=== PATIENT | male | born 1980 | race Two or more races ===

== ENCOUNTER 2022-01-07 16:34 | Emergency (ER) | payer OTHER ==
[~2022-01-07] VITALS: Ht 170.2 cm; Wt 85.7 kg
[2022-01-07] MEDS ORDERED: JARDIANCE10 MG PO (17:02)
== END 2022-01-07 19:35 | disposition home or self-care (01) ==
LOC: ER 16:34
DX: R10.9 Unspecified abdominal pain (principal)

== ENCOUNTER 2022-05-10 10:27 | Outpatient (CLI) | payer OTHER ==
[~2022-05-10 10:27] MED LIST: JARDIANCE10 MG PO
== END 2022-05-10 10:28 | disposition home or self-care (01) ==
LOC: NUCLEAR 10:27
PROVIDERS: ATTEND General Practice
DX: M25.461 Effusion, right knee (principal); M79.604 Pain in right leg; S89.91XA Unspecified injury of right lower leg, initial encounter

== ENCOUNTER → 2022-05-13 | Outpatient (CLI) | payer OTHER | END | disposition home or self-care (01) | LOC: MRI 09:35 | PROVIDERS: ATTEND General Practice | DX: R22.43 Localized swelling, mass and lump, lower limb, bilateral (principal); M79.604 Pain in right leg; M25.561 Pain in right knee; R60.0 Localized edema; E11.8 Type 2 diabetes mellitus with unspecified complications; E11.65 Type 2 diabetes mellitus with hyperglycemia; B35.9 Dermatophytosis, unspecified; I88.0 Nonspecific mesenteric lymphadenitis | CPT/HCPCS: 73721 ==

== ENCOUNTER 2022-06-21 02:10 | Emergency (ER) | payer OTHER ==
[~2022-06-21] VITALS: Ht 170.2 cm; Wt 88.5 kg
== END 2022-06-21 04:26 ==
LOC: ER 02:10
DX: M25.561 Pain in right knee (principal)

== ENCOUNTER 2025-01-31 16:20 | Inpatient (IN) | payer OTHER ==
[~2025-01-31] VITALS: Ht 170.2 cm; Wt 83.0 kg
--- NOTE | 2025-01-31 17:17 | NUR ---
PACIENTE ALERTA Y ORIENTADO X 3. REFIERE DESDE EL VIERNES DOLOR E INFLAMACION EN EXTREMIDADES X 4.
--- NOTE | 2025-01-31 17:19 | NUR ---
PACIENTE ALERTA Y ORIENTADO X 3. REFIERE DESDE EL VIERNES PASADO DOLOR CON INFLAMACION EN EXTREMIDADES LADO DERECHO.
[2025-01-31] MEDS ORDERED: DEXAMETHASONE SODIUM PHOSPHATE 4 MG/ML VIAL IM ONE (17:45)
[2025-01-31] MEDS ORDERED: KETOROLAC TROMETHAMINE 60 MG VIAL IM ONE (17:45)
[2025-01-31] MEDS ORDERED: ACETAMINOPHEN 500 MG GEL..CAP PO ONE (17:45)
--- NOTE | 2025-01-31 20:33 | NUR ---
PTE ALERTA,ESTABLE Y ORIENTADO.SE EDUCA SOBRE EL TRATAMIENTO QUE RECIBIRA EN EL [facility] Y [facility] REFIERE ENTENDER
[2025-01-31 20:36] LABS: BASO % 0.3 % (0.1-1.2); EOS # 0.13 (0.04-0.54); EOS % 1.0 % (0.7-7.0); LYMPH # 1.66 (1.18-3.74); LYMPH % 12.9 % (19.3-53.1); MEAN PLATELET VOLUME 10.00 fl (9.4-12.4); MONO # 1.47 (0.24-0.82); MONO % 11.4 % (4.7-12.5); NEUT # 9.51 (1.56-6.13); NEUT % 73.9 % (34.0-71.1); RED CELL DISTRIBUTION WIDTH 12.2 % (11.6-14.4); URINE APPEARANCE Clear; URINE BILIRRUBIN Negative (NEGATIVE); URINE BLOOD Negative; URINE COLOR Yellow; URINE GLUCOSE Negative (NEGATIVE); URINE KETONE Negative (NEGATIVE); URINE LEUKOCYTE Negative; URINE NITRATE Negative; URINE PROTEIN Negative (NEGATIVE); URINE UROBILINOGEN 0.2 E.U./dl
[2025-01-31 20:37] LABS: URINE BACTERIA 13.1 uL (0.0-1933); URINE EPITHELIAL CELLS 9.2 uL (0.0-38.8); URINE WBC 3.5 uL (0.0-23.2)
[2025-01-31 20:38] LABS: URINE CAST 0.73 uL (0.0-1.40); URINE RBC 1.3 uL (0.0-20.8)
[2025-01-31 20:41] LABS: ERYTHROCYTE SEDIMENTATION RATE 59 mm/hr (0-15)
[2025-01-31 21:00] LABS: INR 0.98
[2025-01-31 21:15] LABS: ALT/SGPT 15.0 U/L (12-78); AST/SGOT 7.0 U/L (15-37); BILIRUBIN TOTAL 0.4 mg/dL (0.3-1.2); BUN CREA RATIO 13.0 (7.0-25.0); CREATININE SERUM 1.09 mg/dL (0.70-1.30); GFR 73.15; GLOBULINA 4.7 G/DL (2.4-3.5); GLUCOSE FASTING 150.0 mg/dL (65-100); OSMOLALITY SERUM 281.0 MOSM/KG (275-295)
[2025-01-31] MEDS ORDERED: VANCOMYCIN HCL 1,000 MG VIAL IV ONE (22:15)
[2025-01-31] MEDS ORDERED: 0.9 % SODIUM CHLORIDE 1,000 ML IV ONE (22:15)
[2025-01-31] MEDS ORDERED: FAMOTIDINE/PF 20 MG/2 ML VIAL IV ONE (22:15)
[2025-01-31] MEDS ORDERED: CEFTRIAXONE SODIUM 1,000 MG VIAL IV ONE (22:15)
[2025-01-31] MEDS ORDERED: ACETAMINOPHEN 500 MG GEL..CAP PO PRN (22:30)
[2025-01-31] MEDS ORDERED: ENALAPRILAT DIHYDRATE 1.25 MG/ML VIAL IV PRN (22:30)
[2025-02-01] MEDS ORDERED: INSULIN REGULAR, HUMAN 1,000 UNIT/10 ML UNITS IV STA (03:18)
--- NOTE | 2025-02-01 07:54 | NUR ---
PACIENTE ALERTA Y ORIENTADO X3. EL MISMO CANALIZADO EN BRAZO DERECHO # 18 PATENTE Y LAURENT DE DOLOR BAJANDO CON UN 0.9NSS @ 100 ML/HR. EN ESPERA DE ESTUDIO DE DOPPLER. CONSULTA CON DR. HENAO Y DR. SALAZAR.
[2025-02-01] MEDS ORDERED: ACETAMINOPHEN 500 MG GEL..CAP PO PRN (12:41)
[2025-02-01] MEDS ORDERED: KETOROLAC TROMETHAMINE 30 MG VIAL IU PRN (12:45)
[2025-02-01] MEDS ORDERED: 0.9 % SODIUM CHLORIDE 1,000 ML IV SCH (12:45)
[2025-02-01] MEDS ORDERED: INSULIN LISPRO 1,000 UNIT/10 ML UNITS SUBCUTANEO PRN (12:45)
[2025-02-01] MEDS ORDERED: DEXTROSE 50 % IN WATER 0.5 G/ML DISP.SYRIN IV PRN (12:45)
[2025-02-01 13:05] VITALS: BP 140/86
[2025-02-01] MEDS ORDERED: KETOROLAC TROMETHAMINE 30 MG VIAL IV PRN (16:45)
[2025-02-01 22:52] VITALS: BP 144/88
[2025-02-02 03:50] VITALS: BP 129/77; O2SAT 97
[2025-02-02 08:05] LABS: BASO % 0.4 % (0.1-1.2); EOS # 0.10 (0.04-0.54); EOS % 1.2 % (0.7-7.0); LYMPH # 2.07 (1.18-3.74); LYMPH % 24.8 % (19.3-53.1); MEAN PLATELET VOLUME 10.50 fl (9.4-12.4); MONO # 0.92 (0.24-0.82); MONO % 11.0 % (4.7-12.5); NEUT # 5.19 (1.56-6.13); NEUT % 62.0 % (34.0-71.1); RED CELL DISTRIBUTION WIDTH 11.9 % (11.6-14.4)
[2025-02-02 08:14] LABS: ALT/SGPT 13.0 U/L (12-78); AST/SGOT 4.0 U/L (15-37); BILIRUBIN TOTAL 0.17 mg/dL (0.3-1.2); BUN CREA RATIO 18.0 (7.0-25.0); CREATININE SERUM 1.0 mg/dL (0.70-1.30); GFR 80.8; GLOBULINA 3.1 G/DL (2.4-3.5)
[2025-02-02 08:18] LABS: GLUCOSE FASTING 330.0 mg/dL (65-100); OSMOLALITY SERUM 298.0 MOSM/KG (275-295)
[2025-02-02 08:57] VITALS: BP 147/88; O2SAT 98
[2025-02-02] MEDS ORDERED: CEFTRIAXONE SODIUM 2,000 MG in 0.9 % SODIUM CHLORIDE 100 ML IV SCH (09:00)
[2025-02-02] MEDS ORDERED: FAMOTIDINE/PF 20 MG/2 ML VIAL IV SCH (09:00)
== END 2025-02-02 15:13 | disposition home or self-care (01) | DRG 603 ==
LOC: ER 16:21 → MEDI 02-01 12:35 → SEC-K 02-01 12:35 → MEDI 02-01 16:13
PROVIDERS: General Practice; Internal Medicine Infectious Disease; ADMIT Specialist/Technologist, Other Nephrology; ATTEND Specialist/Technologist, Other Nephrology
PROC: B54BZZZ Ultrasonography of Right Lower Extremity Veins (ICD-10-PCS; principal; 2025-01-31)
PROC: B44FZZZ Ultrasonography of Right Lower Extremity Arteries (ICD-10-PCS; 2025-01-31)
DX: L03.115 Cellulitis of right lower limb (principal); L03.114 Cellulitis of left upper limb; M25.561 Pain in right knee; M25.562 Pain in left knee; M25.422 Effusion, left elbow; L08.9 Local infection of the skin and subcutaneous tissue, unspecified